=== PATIENT | male | born 1985 | race Caucasian/White ===

== ENCOUNTER 2019-06-07 11:03 | Emergency (ER) | payer OTHER, SELFPAY ==
--- NOTE | ~2019-06-07 | XR_ITS ---
EXAMINATION: XR elbow RT min 3V DATE: 06/07/2019 11:47 INDICATION: Right elbow pain with movement post pulling injury with audible pop TECHNIQUE: Anteroposterior, two oblique and lateral views of the right elbow were obtained. COMPARISON: None. FINDINGS: Alignment is normal. No fracture or joint effusion. Joint spaces are normal. The shadow of the biceps muscle belly appears to taper more abruptly and proximally than would be expected and which given th e provided clinical history raises concern for distal biceps tendon rupture and retraction of the mus brian belly. IMPRESSION: 1. Appearance of the biceps muscle shadow raising suspicion for distal biceps tendon tear. Could cons ider MRI for more definitive determination. Reviewed, dictated and finalized at location A. ETING CONSULTANT IMPRESSION: 1. Appearance of the biceps muscle shadow raising suspicion for distal biceps t endon tear. Could consider MRI for more definitive determination.
[2019-06-07 11:16] VITALS: BP 127/80; PULSE 100; RESP 18; TEMP 36.7; O2SAT 99
--- NOTE | 2019-06-07 12:04 | ED.ABDPAIN ---
HPI - Abdominal Pain General Chief Complaint: Extremity Injury, Upper Stated Complaint: arm pain Time Seen by Provider: 06/07/19 11:12 Source: patient Mode of arrival: ambulatory Limitations: no limitations History of Present Illness HPI narrative: Patient is a 34-year-old male who presents to emergency department for evaluation of right elbow pain noting that he was walking his dog when his dog tugged on his arm felt a pop in the anterior aspect of the elbow and has since pain in the anterior distribution with some posterior pain denies any swelling or deformity patient has not been seen for this complaint presents per private vehicle has not taken anything for his symptoms Related Data Allergies Allergy/AdvReac Type Severity Reaction Status Date / Time No Known Allergies Allergy Verified 06/07/19 11:30 [facility] Social History Social History Smoking status: Never smoker Alcohol intake: never Gender identity (if verbalized by the patient): Male Course Course Emergency Course: Patient in the room aware of case findings treatment plan and diagnosis agreeing to follow-up as directed or to return if symptoms worsen or concerns Consultations Consultation #1: Discussed case with orthopedic surgeon Dr. Figueroa who will follow patient in clinic Vital Signs Vital signs: Vital Signs Temperature 98.0 F 06/07/19 11:16 Pulse Rate 100 06/07/19 11:16 Respiratory Rate 18 06/07/19 11:16 Blood Pressure 127/80 06/07/19 11:16 Pulse Oximetry 99 06/07/19 11:16 Temperature 98.0 F 06/07/19 11:16 Pulse Rate 100 06/07/19 11:16 Respiratory Rate 18 06/07/19 11:16 Blood Pressure 127/80 06/07/19 11:16 Pulse Oximetry 99 06/07/19 11:16 MDM - Abdominal Pain MDM Narrative Medical decision making narrative: Patients injury or pain is consistent with musculoskeletal etiology. No signs of neurological or vascular compromise on exam. Compartments and tisues are soft without signs of compartment syndrome. Pain is felt appropriate for further evaluation on an outpatient basis. Medical Records Medical records narrative: ITS Impressions Elbow X-Ray 06/07/19 11:54 IMPRESSION: 1. Appearance of the biceps muscle shadow raising suspicion for distal biceps tendon tear. Could consider MRI for more definitive determination. Imaging Data Radiologist's impression: ITS Impressions Elbow X-Ray 06/07/19 11:54 IMPRESSION: 1. Appearance of the biceps muscle shadow raising suspicion for distal biceps tendon tear. Could consider MRI for more definitive determination. Discharge Plan Discharge Clinical Impression: Injury of right elbow Patient Disposition: Home, Self-Care Condition: Stable Instructions: Antibiotic Form, How to Use a Sling (ED), Tendon Rupture (ED) Additional Instructions: Follow-up with orthopedic surgery first thing Saturday to set up for reevaluation Return if symptoms worsen or concerns or any increase in redness swelling pain fever over 100.5 or any loss of feeling or function in the extremity Wear sling with intermittent icing for symptom relief Follow patient education sheets Prescriptions: New naproxen 500 mg tablet 500 mg PO BID PRN (Reason: pain) Qty: 7 RF: 0 Follow-up/Referrals: PHYSICIAN,DROPHAMMER OPERATOR [Primary Care Provider] - Holger Figueroa MD [Physician] - Stand Alone Forms: Work/School Release IP
[2019-06-07] MEDS: KETOROLAC (*BKC) 60 MG/2 ML VIAL IM (12:41)
== END 2019-06-07 15:04 | disposition home or self-care (01) ==
PROVIDERS: Emergency Provider Emergency Medicine
DX: S59.901A Unspecified injury of right elbow, initial encounter (principal); R93.6 Abnormal findings on diagnostic imaging of limbs; X50.9XXA Other and unspecified overexertion or strenuous movements or postures, initial encounter; Y93.K1 Activity, walking an animal
CPT/HCPCS: 73080; 96372; 99283; A4565; J1885

== ENCOUNTER 2019-06-10 12:36 | Outpatient (CLI) | payer OTHER, SELFPAY ==
--- NOTE | ~2019-06-10 | MR_ITS ---
EXAMINATION: MR elbow RT wo con DATE: 06/10/2019 13:28 INDICATION: Biceps tendon rupture TECHNIQUE: Magnetic resonance imaging (MRI) of the right elbow was performed without intravenous cont rast. Sequences included coronal, axial, and sagittal PD-weighted FS FSE and coronal, axial, and sagi ttal PD-weighted FSE. COMPARISON: Radiograph dated 06/07/2019 FINDINGS: Osseous/other: Normal alignment. Normal marrow signal with no marrow edema, fracture, osteochondral lesion or abnor mal marrow replacing process. Tendons: Full-thickness avulsion and 1.5 cm proximal retraction of the distal biceps brachii tendon. Tendinopa thy with thickening and fraying of the distal 2.5 cm of the tendon. Small amount of fluid at the tear defect and extending along the tendon distal to the myotendinous junction. Triceps and brachialis te ndons are normal. Common flexor tendon wad is normal. The common extensor tendon wad is normal. Ligaments: The medial and lateral collateral ligament complexes are normal. Cubital tunnel: Cubital tunnel is unremarkable with normal signal and caliber of the ulnar nerve. Fluid: Physiologic amount of fluid the elbow joint. IMPRESSION: 1. Complete avulsion at the radial tuberosity insertion of the biceps brachii tendon with 1.5 cm prox imal retraction. Reviewed, dictated and finalized at location A. F DEVELOPMENT EDUCATOR IMPRESSION: 1. Complete avulsion at the radial tuberosity insertion of the biceps brachii t endon with 1.5 cm proximal retraction.
== END 2019-06-10 12:37 | disposition home or self-care (01) ==
PROVIDERS: Visit Provider Orthopaedic Surgery
DX: S46.291A Other injury of muscle, fascia and tendon of other parts of biceps, right arm, initial encounter (principal)
CPT/HCPCS: 73221

== ENCOUNTER 2019-06-19 00:22 | Day surgery (SDC) | payer OTHER, SELFPAY ==
[2019-06-12 09:10] VITALS: BMI 29.9
[2019-06-19] VITALS (7 sets, daily range): BP systolic 116–124; BP diastolic 70–91; PULSE 68–90; RESP 12–16; TEMP 36.2–36.4; O2SAT 93–100
[2019-06-19] MEDS: LACTATED RINGERS 1,000 ML 30 ML IV CONT ×2 (06:50→09:07)
--- NOTE | 2019-06-19 07:02 | P.PNAN_ITS ---
Anes - Initial Pre Proc Eval Procedure: Operation Date: 06/19/19 07:30 Proposed Procedures p Right Distal Biceps Tendon Repair - Holger Figueroa MD Date/Time: 06/19/19 07:02 Surgeon: Holger Figueroa MD Pre Op Diagnosis: Right Distal Biceps Tendon Rupture Patient Data Age: 34 Gender: M Height: 1.65 m Weight: 84.1 kg Allergies Allergy/AdvReac Type Severity Reaction Status Date / Time No Known Allergies Allergy Verified 06/19/19 06:26 Home Medications Medication Instructions Recorded Confirmed Type naproxen 500 mg PO BID PRN #7 tablet 06/07/19 06/19/19 Rx multivitamin 1 tablet PO DAILY 06/12/19 06/19/19 History Patient hx anesthesia problems: none Family hx anesthesia problems: none [facility] Past Medical History Medical History (Updated 06/19/19 @ 07:02 by Nikita Hahn MD) Obesity Surgical History Surgical History (Updated 06/11/19 @ 16:22 by Holger Figueroa MD) Rupture of right distal biceps tendon (~05/2019) Social History Social History Smoking status: Never smoker Alcohol intake: never Gender identity (if verbalized by the patient): Male Anes - Eval Final PreProcedure Day of Procedure 06/19/19 07:02 Patient weight: obese Heart: regular rate and rhythm Lungs: clear to auscultation and normal air movement Airway: Mallampati scale class II Neurological: alert and oriented Last oral intake: >/= 8 hours ASA classification: II Emergent: no Anesthetic plan: proceed Anesthesia type and monitoring: general LMA Informed Consent: The patient's anesthetic plan and its attendant risks and benefits were discussed with the patient/family/POA. Questions were solicited and answers provided to the satisfaction of the patient/family/POA.
--- NOTE | 2019-06-19 07:20 | WPDHPUPDATE1 ---
History and Physical Update Update Date/Time: 06/19/19 07:20 History and Physical has been reviewed, including an updated exam of the patient. There are NO changes in the patient's condition. Risks, benefits, and alternatives have been discussed and questions answered. Patient agrees to proceed with procedure.
[2019-06-19] MEDS: ceFAZolin 2 GM/D5W 50 ML 2 GM/50 ML BAG IVPB (07:30)
[2019-06-19] MEDS: KETOROLAC 30 MG/ML VIAL (*BKC) IV PUSH (07:52)
--- NOTE | 2019-06-19 09:19 | P.OP_ITS ---
Procedure Note - Detailed Date of procedure: 06/19/19 Pre-op diagnosis: Right Distal Biceps Tendon Rupture Post-op diagnosis: same Procedure performed: Distal biceps tendon repair Implants: Arthrex biotenodesis screw, and endobutton. Anesthesia: GLMA Surgeon: Holger Figueroa MD Estimated blood loss (mL): 10 Drains: No Complications: No immediate complications Condition: stable Disposition: PACU Findings: Preoperative antibiotics were given. A general anesthetic was administered. The arm was prepped and draped in the usual sterile fashion with a well-padded tourniquet high on the arm. The tourniquet was used during the final fixation portion of the procedure. A transverse incision was created 3 centimeters distal to the elbow flexion crease. Careful blunt dissection was used to dissect the interval between the pronator and muscles and the brachioradialis. Careful dissection was brought down to the deep veins which were ligated as necessary. The recurrent radial artery was ligated. The zone of injury was identified. The forearm was carefully supinated to protect the radial nerve and its branches. The distal biceps tendon was identified in the proximal portion of the wound using digital manipulation. A whipstitch was placed in the tendon after carefully debriding the damaged end. The tendon was confirmed to be passable through the 8 millimeter guide. At this point the r adial tuberosity was clearly identified and exposed. Care was taken to maintain supination and limit lateral retraction. The guide pin was drilled through both cortices. The proximal cortex was over reamed to 8 millimeters. The Endobutton was inserted through the distal cortex and deployed. The graft was seated into the radius very nicely. The interference screw was placed with excellent purchas e. The screw was 7 millimeters in diameter. A biocomposite screw was used. Additional fixation was obtained by suturing the free limb to the tendon and tying it through the other suture limb which was brought up through the center cannula of the screw. The repair was quite ma. Copious antibiotic irrigation was used throughout the procedure to remove any loose bone fragments. The tourniquet was used only during the final visualization of tendon insertion. The tourniquet was released and meticulous hemostasis was confirmed. The wound was closed with interrupted 3-0 Monocryl suture followed by a running 4-0 Monocryl suture and Steri-Strips. Sterile light dressing was applied with a sling. The patient was brought to the recovery room in stable condition. There were no complications
--- NOTE | 2019-06-19 11:06 | SUR.PHASEII ---
1050 PT DRESSED, WAITING FOR RIDE.
== END 2019-06-19 11:05 | disposition home or self-care (01) ==
PROVIDERS: Visit Provider Orthopaedic Surgery
PROC: (CPT 24341; principal; 2019-06-19 07:30)
DX: S46.211A Strain of muscle, fascia and tendon of other parts of biceps, right arm, initial encounter (principal); Y93.K9 Activity, other involving animal care
CPT/HCPCS: 24341; A4565; J0131; J0690; J1100; J1885; J2250; J2370; J2405; J2704; J3010; J7120

== ENCOUNTER → 2020-06-06 01:24 | Outpatient (CLI) | payer OTHER, SELFPAY ==
[2020-06-06 19:35] LABS: SARS-CoV-2 RNA PCR Negative
== END ==
PROVIDERS: PCP Family Medicine; Visit Provider Surgery
DX: Z01.812 Encounter for preprocedural laboratory examination (principal); Z20.822 Contact with and (suspected) exposure to COVID-19
CPT/HCPCS: C9803; U0003; U0005

== ENCOUNTER 2020-06-09 00:24 | Day surgery (SDC) | payer OTHER, SELFPAY ==
[2020-06-06 09:35] VITALS: BMI 29.9
[2020-06-09] VITALS (16 sets, daily range): BP systolic 100–136; BP diastolic 65–98; PULSE 68–89; RESP 12–25; TEMP 36.1–36.9; O2SAT 94–100
--- NOTE | 2020-06-09 07:31 | WPDHPUPDATE1 ---
History and Physical Update Update Date/Time: 06/09/20 07:31 History and Physical has been reviewed, including an updated exam of the patient. There are NO changes in the patient's condition. Risks, benefits, and alternatives have been discussed and questions answered. Patient agrees to proceed with procedure.
[2020-06-09] MEDS: LACTATED RINGERS 1,000 ML 30 ML IV CONT ×2 (09:10→13:03)
[2020-06-09] MEDS: ACETAMINOPHEN 500 MG TABLET 1000 MG PO (09:17)
[2020-06-09] MEDS: KETOROLAC 15 MG/ML VIAL (*BKC) IV PUSH (09:35)
--- NOTE | 2020-06-09 10:08 | WPDANESEPPF ---
Anes - Initial Pre Proc Eval Procedure: Operation Date: 06/09/20 10:30 Proposed Procedures p Laparoscopic Repair Epigastric Incisional Hernia - Darrius Dennis MD Date/Time: 06/09/20 10:08 Surgeon: Darrius Dennis MD Pre Op Diagnosis: incisional hernia Patient Data Age: 35 Gender: M Height: 5 ft 5 in Weight: 84.3 kg Last Vital Signs Temp 97.0 F L 06/09/20 08:42 Pulse 68 06/09/20 08:42 Resp 18 06/09/20 08:42 BP 120/81 06/09/20 08:42 Pulse Ox 100 06/09/20 08:42 Allergies Allergy/AdvReac Type Severity Reaction Status Date / Time No Known Allergies Allergy Verified 06/09/20 09:01 Home Medications Medication Instructions Recorded Confirmed Type multivitamin 1 tablet PO DAILY 06/12/19 06/06/20 History Patient hx anesthesia problems: none Family hx anesthesia problems: none PMFSH Past Medical History Medical History BMI greater than 30 GERD without esophagitis History of basal cell cancer Incisional hernia Obesity Screening for lipid disorders Surgical History Surgical History History of cholecystectomy Rupture of right distal biceps tendon (~05/2019) Status post surgical removal of malignant neoplasm of skin Family History Family History Other Acute myocardial infarction Carcinoma of colon Social History Social History (Updated 05/12/20 @ 08:37 by Valeria Mckeon CMA) Smoking status: Never smoker Alcohol intake: never Substance use: unknown Living arrangements: alone Additional occupation/education comments: Maintenance Gender identity (if verbalized by the patient): Male Spiritual care concerns: No Anes - Eval Final PreProcedure Day of Procedure 06/09/20 10:08 Patient weight: obese Heart: regular rate and rhythm Lungs: clear to auscultation Airway: Mallampati scale class II Neurological: alert and oriented Last oral intake: >/= 8 hours ASA classification: II Emergent: no Anesthetic plan: proceed Anesthesia type and monitoring: general ETT and standard monitoring Informed Consent: The patient's anesthetic plan and its attendant risks and benefits were discussed with the patient/family/POA. Questions were solicited and answers provided to the satisfaction of the patient/family/POA.
[2020-06-09] MEDS: ceFAZolin 2 GM/D5W 50 ML 2 GM/50 ML BAG IVPB (10:29)
[2020-06-09] MEDS: BUPIVACAINE/EPINEPHRINE 0.5% 30 ML VIAL INFILTRATE (12:54)
[2020-06-09] MEDS: fentaNYL CITRATE INJ (*CRX) 100 MCG/2 ML VIAL 25 MCG IV PUSH ×4 (13:28→13:38)
--- NOTE | 2020-06-09 13:29 | PM.PROC ---
Procedure Note - Detailed Date of procedure: 06/09/20 Pre-op diagnosis: incisional hernia Epigastric incisional hernia Post-op diagnosis: same Procedure performed: Laparoscopic repair epigastric incisional hernia with 15 x 20 cm Symbotex mesh Description of procedure: Patient was taken to surgery and induced into general anesthesia. The entire abdomen was prepped and draped. Initial trocar was placed below the costal margin on the lateral aspect of the left upper quadrant. This was a 5 mm port was placed under direct visualization with [employer] instruments. Insufflation was carried down. The area of the hernia was noted. A left lower quadrant 10 11 port was then placed under direct visualization. A 5 mm periumbilical port was similarly placed. Initially, we turned our attention to the falciform ligament. This was cauterized near the umbilicus and divided. The falciform and the associated properitoneal fat was then taken down starting from the mid abdomen and heading towards the xiphoid. At the area of the hernia, there was some chronically incarcerated properitoneal fat which was reduced. Minimal bleeding occurred. We expose as much of the hernia and the surrounding abdominal wall as feasible. I then introduced a ruler and measured the hernia defect. It was 5 cm in transverse dimension and 3 cm in craniocaudad dimension. A 15 x 20 cm oval of Symbotex mesh was chosen. Plan was to place this in transverse orientation. Insufflation pressure was reduced to. Using a 22 gauge needle I marked on the skin the edges of the hernia defect. Once the defect was marked, I then placed the Symbotex mesh over the defect in the position desired for underlay repair. The outer margins of the mesh were marked. Transfascial suture sites were marked. I then used 0 [place] and placed several sutures to be used as transfascial sutures and for positioning of the mesh in the desired location. The mesh was then rolled and introduced through the 10 11 port. Once in the abdomen, the mesh was unrolled and positioned generally in the location desired. Two transfascial sutures were placed at the caudad side of the mesh as the center of the mesh would of lied under the sternum. All transfascial sutures were then brought out through the appropriate incisions using the Dexcom suture pass device. While the cranial and caudal transfascial sutures were in very good position, the right and left lateral trans fascial sutures could not be well positioned. The sutures were simply cut at the knots and removed. I tied down the 2 cephalad transfascial sutures as well as the caudad transfascial suture. I then proceeded with the secure strap. The cephalad edge of the mesh as well as the right transverse aspect of the mesh was securely attached to the abdominal wall with the secure strap tacks. I then went to the patient's right side and placed a 5 mm port there. From this position, I used the secure strap to tack down the left lateral aspect of the mesh in similar fashion. Multiple tacks were used and the mesh was secured to well. The hernia defect was covered with over 5 cm overlap in all dimensions. Once the mesh was secure, we stopped insufflation and evacuated CO2. The trocar sleeves were removed. Both the transfascial suture sites as well as the trocar incisions were closed at the skin level with 4 0 Monocryl subcuticular suture. The patient was then awakened and taken to recovery in good condition. Sponge and needle counts were correct x2. Anesthesia: GETA and local (0.5% Marcaine with epinephrine) Surgeon: Darrius Dennis MD Mother Tester: Corry ANDREWS Estimated blood loss (mL): 25 Drains: No Packing: No Pathology: none sent Complications: None Condition: stable Disposition: PACU Findings: 5 cm x 3 cm epigastric incisional hernia. 20 x 15 cm Symbotex mesh mesh used for repair and position transversely.
--- NOTE | 2020-06-09 14:15 | SUR.PHASEI ---
1415 - dr. watkins at bedside talking with pt
--- NOTE | 2020-06-09 14:52 | ADMGEN ---
This patient, Gopi Yang, was admitted to Medical Room 260-. Patient/family oriented to hospital policies and general routines including ID bracelet, bed and alarms, visiting hours, pain management, procedures, bathroom and other care routines, personal items, smoking policy, room service/diet, and visiting hours. Information on how to activate the Rapid Response Team has been discussed. Patient/Family are encouraged to report perceived risks to care and to ask questions if they do not understand what they are told or what they should do.
[2020-06-09] MEDS: LACTATED RINGERS 1,000 ML 100 ML IV CONT (15:02)
[2020-06-09] MEDS: HYDROcodone/acetaminophen (*CRX) 10-325 MG TABLET 1 TAB PO (16:49)
[2020-06-09] MEDS: IBUPROFEN 400 MG TABLET 800 MG PO (17:58)
[2020-06-09] MEDS: FAMOTIDINE 20 MG/2 ML VIAL IV PUSH (21:41)
[2020-06-09] MEDS: ENOXAPARIN 30 MG/0.3 ML SYRINGE SUB-Q (21:41)
[2020-06-09] MEDS: HYDROcodone/acetaminophen (*CRX) 5-325 MG TABLET 1 TAB PO (21:47)
[2020-06-10 00:23] VITALS: BP 100/60; PULSE 99; RESP 16; TEMP 36.8; O2SAT 92
[2020-06-10] MEDS: IBUPROFEN 400 MG TABLET 800 MG PO ×3 (00:47→13:47)
[2020-06-10] MEDS: LACTATED RINGERS 1,000 ML 100 ML IV CONT (01:00)
[2020-06-10 05:54] LABS: Hematocrit 36.7 % (42.0-52.0); Hemoglobin 12.1 g/dL (14.0-18.0); Mean Corpuscular Hemoglobin 28.1 pg (26-34); Mean Corpuscular Volume 85.2 fl (80-100); Mean Platelet Volume 11.8 fl (7.4-10.4); Platelet Count Result 229 k/mm3 (150-375); Red Blood Count 4.31 M/mm3 (4.6-6.20); Red Cell Distribution Width 12.6 % (11.5-14.5); White Blood Count 7.5 K/mm3 (4.5-10.0)
[2020-06-10 06:01] LABS: Anion Gap 3 mmol/L (8-16); Blood Urea Nitrogen 14 mg/dL (9-20); Calcium 8.9 mg/dL (8.4-10.2); Carbon Dioxide 27 mmol/L (22-30); Chloride 107 mmol/L (98-107); Estimated CRCL calculation 75 ml/min; Estimated Glomerular Filt Rate > 60; Glucose 100 mg/dL (75-110); Sodium 137 mmol/L (137-145)
[2020-06-10 06:06] VITALS: BP 106/49; PULSE 56; RESP 17; TEMP 36.7; O2SAT 96
[2020-06-10 06:20] VITALS: O2SAT 91
--- NOTE | 2020-06-10 08:06 | WPDANESPN ---
Anes - Prog Note Post-Op Date/Time: 06/10/20 08:06 Cardiovascular status: normal Respiratory status: normal Airway patency: baseline Mental status: baseline Post-Op hydration status: normal Vital Signs: Last Vital Signs Temp 36.7 C 06/10/20 06:06 Pulse 56 L 06/10/20 06:06 Resp 17 06/10/20 06:06 BP 106/49 L 06/10/20 06:06 Pulse Ox 91 06/10/20 06:20 Pain Score (VAS): 2 I/O: Intake & Output 06/09/20 06/10/20 06/10/20 23:59 07:59 15:59 Intake Total 240 1150 Output Total 0 1150 Balance 240 0 Laboratory Tests 06/10/20 05:12 06/10/20 05:12 06/10/20 06/10/20 05:12 05:12 WBC 7.5 RBC 4.31 L Hgb 12.1 L Hct 36.7 L MCV 85.2 MCH 28.1 MCHC 33.0 RDW 12.6 Plt Count 229 MPV 11.8 H Sodium 137 Potassium 4.0 Chloride 107 Carbon Dioxide 27 Anion Gap 3 L BUN 14 Creatinine 1.20 Estim Creat Clear Calc 75 Estimated GFR > 60 Glucose 100 Calcium 8.9 Post-procedural complaints: none Patient Feedback: Patient satisfied with anesthetic care.
[2020-06-10 08:20] VITALS: BP 107/56; PULSE 76; RESP 12; TEMP 36.7; O2SAT 96
[2020-06-10] MEDS: polyethylene glycoL 3350 17 GM POWD.PACK PO (09:39)
[2020-06-10] MEDS: HYDROcodone/acetaminophen (*CRX) 5-325 MG TABLET 1 TAB PO (09:39)
[2020-06-10] MEDS: ENOXAPARIN 30 MG/0.3 ML SYRINGE SUB-Q (09:39)
[2020-06-10] MEDS: FAMOTIDINE 20 MG/2 ML VIAL IV PUSH (09:39)
[2020-06-10 10:00] VITALS: BP 114/69; PULSE 93; RESP 18; TEMP 36.8; O2SAT 100
[2020-06-10] MEDS: BISACODYL 10 MG SUPPOSITORY RECTAL (13:48)
[2020-06-10 13:54] VITALS: BP 114/70; PULSE 71; RESP 16; TEMP 36.4; O2SAT 98
--- NOTE | 2020-06-10 14:11 | PM.DS ---
DS: Admitting Diagnosis Admitting Diagnosis Admitting Diagnosis: ventral incisional hernia epigastric area DS: Discharge Diagnosis Discharge Diagnosis (1) BMI 30.0-30.9,adult: Code(s): Z68.30 - Body mass index [BMI]30.0-30.9, adult Status: Acute (2) GERD without esophagitis: Code(s): K21.9 - Gastro-esophageal reflux disease without esophagitis Status: Acute (3) Incisional hernia: Qualifiers: Obstruction and gangrene presence: without obstruction or gangrene Qualified Code(s): K43.2 - Incisional hernia without obstruction or gangrene Code(s): K43.2 - Incisional hernia without obstruction or gangrene Status: Acute Assessment and Plan: this is the main reason for his surgery and subsequent admission. Patient seems to be doing well postop day 1. Having minimal pain well controlled with [place] now. (4) History of cholecystectomy: Code(s): Z90.49 - Acquired absence of other specified parts of digestive tract Status: Acute DS: Summary Hospital Course Reason for hospitalization: Recovery status post laparoscopic ventral incisional hernia repair with mesh. Hospital Course: Patient had uneventful postoperative corse. He stayed overnight after Dr. Kraus performed a laparoscopic ventral incisional hernia repair in the upper abdomen using mesh. His pain is well under control with oral pain medication. He has tolerated a full liquid diet for lunch and feels like he is well at ready to go. He is passing flatus but has not yet had a bowel movement. Status at Discharge Cognitive/behavioral status at discharge: Normal Functional status at discharge: independent ambulation Overall status at discharge: patient is not back to baseline ( patient is moving slow because of his previous surgery but all incisions are doing well and he is walking without difficulty.) Time Spent with Patient Time attestation: Total time spent providing and/or coordinating discharge services: Time spent: Less than 30 minutes Specific discharge activities: see Patient instructions for these. Exam Const: General: cooperative, no acute distress, alert and awake Orientation/consciousness: patient oriented x3 HENMT: Mouth: Yes moist mucous membranes Neck: Neck: normal visual inspection Chest: Chest palpation & inspection: normal inspection of the chest Resp: Effort & Inspection: normal respiratory effort Auscultation: clear to auscultation bilaterally Cardio: Jugular venous distension: no JVD Rate: regular rate Rhythm: regular rhythm GI: Inspection: incision ( Multiple small incisions all clean and dry with surgical glue in place) GI Palp: Yes abdominal tenderness ( mild at incision sites.) Auscultation: normal bowel sounds Rectal Exam: deferred Neuro: General: patient oriented x3 and moves all extremities Speech: normal speech Extrem: General: normal exam except as noted Psych: Mental Status: mental status grossly normal Speech and movement: Normal speech and movement present Affect: normal affect Thought content: Yes Normal thought content present DS: Data Data Completed and Pending Labs on day of discharge: Labs from last 24 hours 06/10/20 06/10/20 05:12 05:12 WBC 7.5 RBC 4.31 L Hgb 12.1 L Hct 36.7 L MCV 85.2 MCH 28.1 MCHC 33.0 RDW 12.6 Plt Count 229 MPV 11.8 H Sodium 137 Potassium 4.0 Chloride 107 Carbon Dioxide 27 Anion Gap 3 L BUN 14 Creatinine 1.20 Estim Creat Clear Calc 75 Estimated GFR > 60 Glucose 100 Calcium 8.9 Discharge Plan Discharge Patient Disposition: Home, Self-Care Discharge Instructions: Ambulate 3-4 x per day and as tolerated. No lifting over 15-20lbs. May bathe or shower. Stairs are OK. May drive a car in 3 days. Stand Alone Forms: General Discharge Instructions Follow-up/Referrals: Darrius Dennis MD [Physician] - 2 Weeks Discharge Medications: New polyet
--- NOTE | 2020-06-10 15:38 | PC.NURSE ---
On 06/10/20, the student, [ Avel John], provided care and completed [facility] documentation on this patient. I have reviewed the student's documentation and agree with the findings.
== END 2020-06-10 14:00 | disposition home or self-care (01) ==
LOC: ANHSURGERY 08:27 → ANH2MED 14:33
PROVIDERS: PCP Family Medicine; Visit Provider Surgery
PROC: (CPT 49654; principal; 2020-06-09 10:30)
DX: K43.2 Incisional hernia without obstruction or gangrene (principal); K21.9 Gastro-esophageal reflux disease without esophagitis; Z85.828 Personal history of other malignant neoplasm of skin; E66.9 Obesity, unspecified; Z68.30 Body mass index [BMI] 30.0-30.9, adult
CPT/HCPCS: 49654; 36415; 80048; 85027; A9270; C1781; C9803; J0330; J0690; J1100; J1170; J1650; J1885; J2250; J2405; J2704; J3010; J7120; U0003; U0005